=== PATIENT | female | born 1970 | race Caucasian/White ===

== ENCOUNTER 2017-08-16 18:24 | Emergency (ER) | payer BC ==
[~2017-08-16] VITALS: Ht 172.7 cm; Wt 82.5 kg
[~2017-08-16 18:24] MED LIST: CARAFATE100 MG/ML PO; ZOFRAN4 MG PO
[2017-08-16 18:30] VITALS: BP 126/83
== END 2017-08-16 20:52 | disposition left against medical advice (07) ==
LOC: EME 18:24
DX: M54.2 Cervicalgia (principal); Z53.21 Procedure and treatment not carried out due to patient leaving prior to being seen by health care provider